=== PATIENT | female | born 1950 | race Hispanic/Latino ===

== ENCOUNTER → 2023-11-09 | Outpatient (CLI) | payer OTHER ==
[~2023-11-09] MED LIST: ALBUHFA IH; BUDE10.2 IH; CALC-1009 PO; CHOL200074 PO; CYCL30DR OU; FERR325T22 PO; FIORIT PO; MONT-46 PO; MULT-1271 PO; OMEP20CA4 PO; PRAV20TA4 PO; TYL3 PO
== END | disposition home or self-care (01) ==
LOC: SHCH 09:34
PROVIDERS: ATTEND Internal Medicine
DX: R09.89 Other specified symptoms and signs involving the circulatory and respiratory systems (principal)
CPT/HCPCS: 93880

== ENCOUNTER → 2023-11-12 | Outpatient (CLI) | payer OTHER | END | disposition home or self-care (01) | LOC: SHCH 13:51 | PROVIDERS: ATTEND Internal Medicine | DX: I34.0 Nonrheumatic mitral (valve) insufficiency (principal); E78.5 Hyperlipidemia, unspecified | CPT/HCPCS: 93306 ==

== ENCOUNTER → 2023-12-10 | Outpatient (CLI) | payer OTHER | END | disposition home or self-care (01) | LOC: RAH 13:51 | PROVIDERS: ATTEND Family Medicine | DX: M47.26 Other spondylosis with radiculopathy, lumbar region (principal); M51.16 Intervertebral disc disorders with radiculopathy, lumbar region; M48.061 Spinal stenosis, lumbar region without neurogenic claudication | CPT/HCPCS: 72148 ==

== ENCOUNTER 2025-05-03 06:05 | Day surgery (SDC) | payer OTHER ==
[2025-05-01 11:57] LABS: BASOPHILS # (AUTO) 0.05 K/uL (0.00-0.20); BASOPHILS % (AUTO) 0.8 % (0.0-5.0); EOSINOPHILS # (AUTO) 0.22 K/uL (0.00-0.70); EOSINOPHILS % (AUTO) 3.6 % (0.0-8.0); HEMATOCRIT 30.2 % (36-48); IMMATURE GRANULOCYTE ABSOLUTE 0.01 K/uL (0-1); LYMPHOCYTES # (AUTO) 1.1 K/uL (1.0-4.8); LYMPHOCYTES % (AUTO) 18.5 % (21.0-51.0); MEAN CORPUSCULAR HEMOGLOBIN 31.8 pg (27.0-33.0); MEAN CORPUSCULAR HGB CONC 33.8 g/dL (32.0-36.0); MEAN CORPUSCULAR VOLUME 94.1 fL (79-99); MONOCYTES # (AUTO) 0.7 K/uL (0.1-1.0); MONOCYTES % (AUTO) 11.8 % (3.0-13.0); NEUTROPHILS # (AUTO) 3.9 K/uL (1.8-7.7); NEUTROPHILS % (AUTO) 65.1 % (40.0-77.0); PLATELET COUNT (AUTO) 312 K/uL (130-400); RED BLOOD CELL COUNT(AUTO) 3.21 MIL/uL (4.00-5.50); RED CELL DISTRIBUTION WIDTH 12.7 % (11.0-15.5)
[2025-05-01 12:08] LABS: CREATININE 0.6 mg/dL (0.5-1.0); POTASSIUM 4.9 mmol/L (3.5-5.1)
[2025-05-01 12:10] LABS: INR 0.98 (0.85-1.15); PROTHROMBIN TIME 10.4 SEC (9.6-11.6)
[2025-05-01 12:12] LABS: PARTIAL THROMBOPLASTIN TIME 25.7 SEC (26.3-35.5)
[2025-05-01 12:28] VITALS: BP 170/64; PULSE 62; RESP 18; TEMP 97
[2025-05-01 12:30] VITALS: BP 169/70
[2025-05-03] VITALS (14 sets, daily range): BP systolic 112–174; BP diastolic 52–79; PULSE 71–79; RESP 13–18; TEMP 96.8–97.9
[~2025-05-03] VITALS: Ht 157.5 cm; Wt 52.2 kg
[~2025-05-03 06:05] MED LIST changes: +ALBU8TAB PO; -ALBUHFA IH; -BUDE10.2 IH; -CALC-1009 PO; +CEVI30CA7 PO; -CHOL200074 PO; +CLOB30CR5 TP; -CYCL30DR OU; +ESTRADIOL VAG CREAM TP; -FERR325T22 PO; -FIORIT PO; +FLUT1BLS IH; +HYDR200T75 PO; +LORA-192 PO; -MONT-46 PO; -MULT-1271 PO; -OMEP20CA4 PO; +OMEP40CA21 PO; +PHARMACY COMMUNICATION MISC SCH; -PRAV20TA4 PO; +ROSU10TA72 PO; -TYL3 PO
[2025-05-03] MEDS ORDERED: metRONIDazole 500MG/100ML BAG 0 ML ONE (06:18)
[2025-05-03] MEDS ORDERED: INDOCYANINE GREEN 25 MG VIAL IJ ONE (07:08)
[2025-05-03] MEDS ORDERED: GLYCOPYRROLATE 0.2 MG/ML 5 ML VIAL ONE (07:13)
[2025-05-03] MEDS ORDERED: LIDOCAINE PF 100MG/5ML (2%) SYRINGE 5ML ONE (07:13)
[2025-05-03] MEDS ORDERED: dexaMETHasone SOD PHOSPHATE 10MG/ML 1ML VIAL ONE (07:13)
[2025-05-03] MEDS ORDERED: NEOSTIGMINE METHYLSULFATE 1MG/ML IV ONE (07:14)
[2025-05-03] MEDS ORDERED: FENTanyl CITRate PF 50 MCG/1 ML 2ML VIAL ONE ×2 (07:14→07:55)
[2025-05-03] MEDS ORDERED: MIDAZOLAM HCL 1 MG/ML 2ML VIAL ONE (07:14)
[2025-05-03] MEDS ORDERED: ondanSETRON 4MG INJ ONE (07:14)
[2025-05-03] MEDS ORDERED: rocuRONium bROMide 10MG/1ML 5ML VL ONE (07:14)
[2025-05-03] MEDS ORDERED: SUCCINYLCHOLINE CHLORIDE 20 MG/ML 10 ML VIAL ONE (07:14)
[2025-05-03] MEDS ORDERED: proPOFol 10 MG/ML 20ML VIAL IV ONE (07:14)
[2025-05-03] MEDS: INDOCYANINE GREEN 25 MG VIAL IJ ONE (07:40)
[2025-05-03] MEDS: ceFAZolin SODIUM 2 GM VIAL ONE (07:41)
[2025-05-03] MEDS: LACTATED RINGERS 1000ML 1,000 ML IV ONE (07:41)
[2025-05-03] MEDS ORDERED: BUPIvacaine/PF 0.25% 30ML VIAL IJ ONE (07:48)
--- NOTE | 2025-05-03 09:03 | OP ---
Operative Note: DATE OF PROCEDURE: 05/03/25 SURGEON: CHANTELL WILSON MD ACOUSTICS TEACHER: [Please review operative record] ANESTHESIA: [General and local] ANESTHESIOLOGIST/LEAD ENTERPRISE ARCHITECT: [Please review operative record] PREOPERATIVE DIAGNOSIS: [Biliary pancreatitis, gallbladder sludge] POSTOPERATIVE DIAGNOSIS: [Same] SYNOPSIS: [Mildly inflamed gallbladder, ic green confirmed cystic duct, the hepatic and common bile duct also visualized. No ductal dilatation no obvious intra ductal filling defects] PROCEDURE: [1. Robotic assisted laparoscopic cholecystectomy. 2. IC green cholangiography] ESTIMATED BLOOD LOSS: [10 cc] INDICATIONS: [74-year-old female with history of biliary pancreatitis who was found to have sludge in her gallbladder. In order to minimize future biliary and pancreatic events recommendation was given to remove the gallbladder. Risks, benefits, alternatives were discussed with the patient. All questions answered. Patient agreed to proceed with surgical intervention] DESCRIPTION OF PROCEDURE: [After appropriate consent was obtained, the patient was brought into the operating room and placed in supine position on the operating table. SCDs were placed, preop antibiotics were given. Patient underwent induction of general anesthesia, endotracheal intubation. Patient was then prepped and draped in usual sterile fashion. Time-out was performed. Through a left subcostal incision, Veress needle was inserted into the peritoneal cavity. Insufflation was allowed to 12 mmHg. Through an 8 mm supraumbilical incision, trocar and laparoscope were inserted into the peritoneal cavity using Optiview. Patient was placed in a slight reverse Trendelenburg position. The Wan robot was docked. Upon evaluation of the gallbladder, it appeared mildly inflamed. The fundus was grasped and retracted cephalad, the infundibulum was grasped and retracted laterally exposing Calot's triangle. Dissection of Calot's triangle was accomplished with a combination of hook electrocautery and blunt dissection. Using ICG green cholangiography, cystic duct was appropriately identified. Common bile duct and hepatic duct were also visualized. No filling defects or ductal dilation was identified. The cystic duct was clipped 2 times proximally and one time distally sharply divided with two of the clips staying behind. Cystic artery was small. It was isolated , clipped once and cauterized using bipolar energy. Sharply divided with the clips staying behind. The gallbladder was removed from the gallbladder fossa using bipolar electrocautery. Fossa hemostasis was obtained. The gallbladder was then placed in an Endo-Catch bag and removed through a eight mm trocar in the right upper quadrant. Final inspection revealed adequate hemostasis no concerns for leakage. At this time counts were correct. Abdomen was deflated. All instruments were removed. Incisions were closed with 4-0 Monocryl suture. Dermabond was applied over the incisions. Patient tolerated the procedure well. Transferred to recovery in good condition.] CHANTELL WILSON MD May 03, 2025 09:03
--- NOTE | 2025-05-03 09:06 | DS ---
Discharge Summary Hospital Course Patient is a 74-year-old female was admitted from the outpatient setting for elective robotic assisted laparoscopic cholecystectomy due to history of biliary pancreatitis and gallbladder sludge on 05/03/2025. No issues during the procedure. Patient tolerated the procedure well. No major concerns at this time. She remains hemodynamically stable, afebrile, aerating well on room air, normal sinus rhythm. Abdomen is benign, incisions clean dry and intact. Abdomen is appropriately tender to palpation, no rebound or guarding. She will be observed in PACU and discharged home per anesthesia protocol. No lifting more than 20 lb for a month, okay to shower 24 hours of the procedure. Advance diet as tolerated Postop follow up already in place, postop medications already submitted to the patient's pharmacy. Return precautions given including fevers of 101.5 or higher, worsening abdominal pain, intractable nausea or vomiting, or just any concerns about her overall health. CHANTELL WILSON MD May 03, 2025 09:06
--- NOTE | 2025-05-03 09:45 | NUR ---
dressing: abdominal incisions x 5 with dermabond dry/intact with no active bleeding present. no redness/swelling noted to surrounding area.
--- NOTE | 2025-05-03 10:10 | NUR ---
dressing: abdominal incisions x 5 with dermabond dry/intact with no redness/swelling noted to surrounding area.
== END 2025-05-03 10:10 | disposition home or self-care (01) ==
LOC: DAH 06:05
PROVIDERS: ATTEND Surgery
DX: K80.10 Calculus of gallbladder with chronic cholecystitis without obstruction (principal); K85.90 Acute pancreatitis without necrosis or infection, unspecified; K82.8 Other specified diseases of gallbladder; K21.9 Gastro-esophageal reflux disease without esophagitis; F41.9 Anxiety disorder, unspecified; J45.909 Unspecified asthma, uncomplicated; R10.13 Epigastric pain; E78.5 Hyperlipidemia, unspecified; J84.10 Pulmonary fibrosis, unspecified; M35.00 Sjogren syndrome, unspecified; J44.9 Chronic obstructive pulmonary disease, unspecified; K29.50 Unspecified chronic gastritis without bleeding; Z98.890 Other specified postprocedural states; Z79.899 Other long term (current) drug therapy
CPT/HCPCS: 80048; 85025; 85610; 85730; 86850; 86900; 86901; 36415; 47563; 88304; A6260; A4663; J7030; J7120 ×2; A4215 ×2; J3010 ×2; J1100; J0330; J0665 ×2; J3490 ×2; J2003; J2250; J2704; J2405; J2710; J0690 ×2; A4930; A4213; A4222; A4221; A4216; A4223 ×2; A4600